=== PATIENT | male | born 1970 | race Caucasian/White ===

== ENCOUNTER 2017-12-31 00:36 | Emergency (ER) | payer OTHER ==
[~2017-12-31] VITALS: Ht 185.4 cm; Wt 116.3 kg
[2017-12-31 00:41] VITALS: TEMP 36.8; Ht 185.4 cm; Wt 116.3 kg
[2017-12-31] MEDS ORDERED: ACETAMINOPHEN 500 MG TAB PO STA (00:51)
[2017-12-31] MEDS ORDERED: IBUPROFEN 600 MG TAB PO STA (00:51)
[2017-12-31] MEDS ORDERED: NORCO 5/325MG HOME PACK PO ONE (03:00)
[2017-12-31 03:10] VITALS: BP 136/100; PULSE 96; O2SAT 96
--- NOTE | 2017-12-31 06:44 | DIAGNOSTIC IMAGING REPORT ---
R SHOULDER MIN 2 VIEWS ROUTINE HISTORY: 47 years-old Male right shoulder injury acute right shoulder pain COMPARISON: None available TECHNIQUE: 3 views of the right shoulder FINDINGS: Mild osteoarthritis of the AC joint. Mild marginal spurring of the inferior glenohumeral joint. No acute fracture or dislocation. Imaged lung milian appear clear. IMPRESSION: No acute fracture or dislocation. The above report was generated using voice recognition software. It may contain grammatical, syntax or spelling errors. Electronically signed by: Chester Chaidez M.D. 12/31/2017 6:43 AM Dictated Date/Time: 12/31/2017 6:42 AM
--- NOTE | 2018-01-01 04:27 | EMERGENCY ROOM VISIT NOTE ---
History First contact with patient: 00:45 Chief Complaint: SHOULDER PAIN Stated Complaint: RT SHOULDER PAIN-LOSS OF MOBILITY - WORK RELATED History of Present Illness The patient is a 47 year old male who presents to the Emergency Room with complaints of right shoulder injury that occurred at work roughly 1 hour ago. 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 The patient has decreased range of motion because of his injury. Patient has not had previous shoulder injury in the past. He does not have numbness or paresthesias. He has not had anything [id number] for pain control. The patient rates his discomfort a 7/10. He does not identify other aggravating or alleviating factors. Review of Systems More than 10 systems were reviewed and otherwise negative with the exception of history of present illness. Past Medical/Surgical History No chronic medical disease Family History No pertinent family history Social History Smoking Status: Never Smoker Housing Status: lives with family Occupation Status: employed Current/Historical Medications No Active Prescriptions or Reported Meds Physical Exam Vital Signs Date Time Temp Pulse Resp B/P (MAP) Pulse Ox O2 Delivery O2 Flow Rate FiO2 12/31/17 03:10 96 16 136/100 96 12/31/17 02:15 96 18 117/76 95 Room Air 12/31/17 00:41 36.8 116 20 127/90 94 Room Air Physical Exam VITALS: Vitals are noted on the nurse's note and reviewed by myself. Vital signs stable. GENERAL: Well-developed, well-nourished, white male, who is in no acute distress and resting comfortably. Patient is cooperative with the examination. NECK: Supple without nuchal rigidity. No lymphadenopathy. No thyromegaly. Cervical spine is nontender. HEART: Regular rate and rhythm without murmurs gallops or rubs. LUNGS: Clear to auscultation bilaterally without wheezes, rales or rhonchi. No retractions or accessory muscle use. MUSCULOSKELETAL: No muscle atrophy, erythema, or edema noted. Decreased range of motion to abduction of the right shoulder. Positive empty can. Tenderness is appreciated throughout the lateral proximal deltoid as well as the superior aspect of the scapula on the right. Neurovascular status is intact with no blood or bleeding is noted. There is some mild tenderness at the proximal bicep tendon insertion medially. Patient is able to supinate and pronate. No tenderness of the right elbow or wrist. NEURO: Patient was alert and oriented to person place and time. CN II through XII grossly intact. Medical Decision & Procedures ER Provider Diagnostic Interpretation: R SHOULDER MIN 2 VIEWS ROUTINE HISTORY: 47 years-old Male right shoulder injury acute right shoulder pain COMPARISON: None available TECHNIQUE: 3 views of the right shoulder FINDINGS: Mild osteoarthritis of the AC joint. Mild marginal spurring of the inferior glenohumeral joint. No acute fracture or dislocation. Imaged lung milian appear clear. IMPRESSION: No acute fracture or dislocation. Medications Administered Medications (Trade) Dose Ordered Sig/Valente Route Start Time Stop Time Status Last Admin Dose Admin Acetaminophen (Tylenol Tab) 1,000 mg NOW STAT PO 12/31/17 00:51 12/31/17 00:53 DC 12/31/17 00:57 1,000 MG Ibuprofen (Motrin Tab) 600 mg NOW STAT PO 12/31/17 00:51 12/31/17 00:53 DC 12/31/17 00:57 600 MG Acetaminophen/ Hydrocodone Bitart ([place] 5/325mg Home Pack) 1 homepack UD ONCE PO 12/31/17 03:00 12/31/17 03:01 DC 12/31/17 03:09 1 HOMEPACK ED Course Physical exam and history were performed. Nursing notes, EMR, and Medication List were personally reviewed. Patient appears to have suffered injury to his right shoulder while working tonight. The patient has tenderness on examination throughout the right shoulder and musculature. He was given a dose of Tylenol and Advil here in the department. X-rays were obtained and reviewed by myself and radiology arm sling. Overall the patient appears well for discharge home. He suffered injury to the right shoulder and will need to follow with Workmen's Compensation for ongoing care and. The patient will be given a home pack of Vicodin for pain control. He is to follow-up with them as soon as possible for ongoing care and evaluation. He may not return to work until cleared by Workmen's Compensation. The patient was otherwise invited back to the ER with any new, worsening, or concerning symptoms. He voiced understanding of this plan and rated his discomfort a 2/10 at the time of departure. The chart was completed utilizing Dragon Speech Voice Recognition Software. Grammatical errors, random word insertions, pronoun errors, and incomplete sentences are an occasional consequence of this system due to software limitations, ambient noise, and hardware issues. Any formal questions or concerns about the content, text, or information contained within the body of this dictation should be directly addressed to the provider for clarification. . Medical Decision Differential diagnosis includes, but is not limited to: Sprain, strain, fracture , dislocation, subluxation, contusion, rotator cuff injury, and others Impression Primary Impression: Injury of right shoulder Departure Information Dispostion Home / Self-Care Condition GOOD Prescriptions No Active Prescriptions or Reported Meds Forms HOME CARE DOCUMENTATION FORM, Work Instructions, Additional Instructions: Patient was seen and evaluated today in the emergency department fo medical care. May not return to work until cleared by Workmen' Compensation. IMPORTANT VISIT INFORMATION Patient Instructions [facility] Additional Instructions You were seen and evaluated today on an emergency basis only. This is not a substitute for, or an effort to provide, complete comprehensive medical care. It is not possible to recognize and treat all injuries or illnesses in a single emergency department visit. For this reason it is recommended that you followup with Workmen's Compensation in the next few days for a recheck of your condition. Do not return to work until cleared by Workmen's Compensation. For baseline pain relief you may alternate ibuprofen and acetaminophen every 4 hours for pain control. Take 600 mg ibuprofen (Advil) and then 4 hours later take 1000 mg acetaminophen (Tylenol). Do not take more than 3000 mg acetaminophen in a single day. Where your arm sling for comfort. You may remove your arm from the sling and practice range of motion exercises of your shoulder. [place] (hydrocodone/acetaminophen) 5/325 mg (homepack): Take ONE pill by mouth every 6 hours as needed for worsening breakthrough pain. Do not drink or drive on [place]. This medication will likely make you tired. Do not take [place] and Tylenol at the same time as both contain acetaminophen. [place] may cause constipation. You may wish to take an [id number] stool softener like Colace if this occurs. You are welcome to return to the emergency department anytime with new, worsening, or concerning symptoms. Work Instructions Additional Work Instructions: Patient was seen and evaluated today in the emergency department for medical care. May not return to work until cleared by Workmen's Compensation.
== END 2017-12-31 03:11 | disposition home or self-care (01) ==
LOC: C.EDB 00:38 → C.EDA 03:11
DX: S49.91XA Unspecified injury of right shoulder and upper arm, initial encounter (principal); X50.0XXA Overexertion from strenuous movement or load, initial encounter; Y93.89 Activity, other specified; Y99.0 Civilian activity done for income or pay